=== PATIENT | male | born 1945 | race Caucasian/White ===

== ENCOUNTER 2018-01-07 10:44 | Day surgery (SDC) | payer MEDICARE, OTHER ==
[2018-01-07] VITALS (11 sets, daily range): BP systolic 120–142; BP diastolic 69–80; PULSE 47–77; TEMP 97.8
[~2018-01-07] VITALS: Ht 185.5 cm; Wt 96.8 kg
[2018-01-07 11:34] LABS: PROTHROMBIN TIME 11.5 SECONDS (9.7-12.8)
[2018-01-07 11:37] LABS: HEMATOCRIT 47.1 % (42.0-52.0); HEMOGLOBIN 15.6 g/dl (13.5-18.0); MEAN CELL VOLUME 99 fl (80.0-100.0); MEAN CORPUSCULAR HEMOGLOBIN 33 pg (27.0-31.0); MEAN CORPUSCULAR HGB CONC 33 g/dl (33.0-37.0); MEAN PLATELET VOLUME 10.1 fl (7.4-10.4); PLATELET COUNT 261 K/mm3 (130-400); RED BLOOD COUNT 4.78 M/mm3 (4.20-5.60); REDCELL DISTRIBUTION WIDTH-CV 12.4 % (11.5-14.5)
[2018-01-07 11:39] LABS: CALCIUM 9.2 mg/dL (8.4-10.2); CREATININE, serum 0.89 mg/dL (0.66-1.25); POTASSIUM 4.2 mmol/L (3.4-5.0)
[2018-01-07] MEDS ORDERED: ZESTORETIC 25 M1 TAB PO (11:46)
[2018-01-07] MEDS ORDERED: NEXIUM 40MG40 MG PO (11:47)
[2018-01-07] MEDS ORDERED: CHELATED IRON PO (11:48)
[2018-01-07] MEDS ORDERED: ASPIRIN 81M81 MG/TA2 PO (11:48)
[2018-01-07] MEDS ORDERED: LIPITOR 40MG TA40 MG PO (11:49)
[2018-01-07] MEDS ORDERED: TOPROL XL 25MG25 MG PO (11:50)
[2018-01-07] MEDS ORDERED: ADVIL200 MG PO (11:50)
== END 2018-01-07 18:15 | disposition home or self-care (01) ==
LOC: COL.CAR 10:44
PROVIDERS: Internal Medicine Cardiovascular Disease
DX: I25.10 Atherosclerotic heart disease of native coronary artery without angina pectoris (principal); I10 Essential (primary) hypertension; I49.3 Ventricular premature depolarization; I45.10 Unspecified right bundle-branch block; R73.03 Prediabetes; Z79.82 Long term (current) use of aspirin; Z82.49 Family history of ischemic heart disease and other diseases of the circulatory system; Z82.3 Family history of stroke; Z79.1 Long term (current) use of non-steroidal anti-inflammatories (NSAID)
CPT/HCPCS: J1644; J2250; J3010; Q9967

== ENCOUNTER 2019-12-27 07:45 | Day surgery (SDC) | payer MEDICARE, OTHER ==
[~2019-12-27] VITALS: Ht 185.5 cm; Wt 97.0 kg
[~2019-12-27 07:45] MED LIST: ADVIL200 MG PO; ASPIRIN 81M81 MG/TA2 PO; CHELATED IRON PO; LIPITOR 40MG TA40 MG PO; NEXIUM 40MG40 MG PO; TOPROL XL 25MG25 MG PO; ZESTORETIC 25 M1 TAB PO
[2019-12-27 08:43] VITALS: BP 140/95; PULSE 48; TEMP 97
[2019-12-27 08:53] LABS: INR 1.3 (0.8-3.0)
[2019-12-27] MEDS ORDERED: ELIQUIS 5MG PO (08:56)
[2019-12-27 10:45] VITALS: BP 103/70; PULSE 65
--- NOTE | 2019-12-27 10:45 | NUR ---
report recieved from Radha RN, pt sits up talking with , no c/o, called for EKG for post cardioversion, call light within reach, sips on water
[2019-12-27 11:00] VITALS: BP 101/68; PULSE 66
[2019-12-27 11:15] VITALS: BP 116/77; PULSE 76
--- NOTE | 2019-12-27 11:15 | NUR ---
pt sits on side of bed, no c/o dizziness, reviewed discharge inst. with pt on activity, followup with Dr Feliciano in 2 weeks, left message at office for them to call pt. Reviewed medication with no changes with verbal understanding.
[2019-12-27 11:45] VITALS: BP 125/84; PULSE 76
--- NOTE | 2019-12-27 11:45 | NUR ---
iv d'cd intact, pt dressed, up to b/r, then discharged via w/c to car with
== END 2019-12-27 11:50 | disposition home or self-care (01) ==
LOC: COL.CAR
PROVIDERS: Internal Medicine Cardiovascular Disease
DX: I48.19 Other persistent atrial fibrillation (principal); I49.5 Sick sinus syndrome; I25.10 Atherosclerotic heart disease of native coronary artery without angina pectoris; I11.0 Hypertensive heart disease with heart failure; I50.20 Unspecified systolic (congestive) heart failure; D64.9 Anemia, unspecified; I34.0 Nonrheumatic mitral (valve) insufficiency; K21.9 Gastro-esophageal reflux disease without esophagitis; K44.9 Diaphragmatic hernia without obstruction or gangrene; M54.12 Radiculopathy, cervical region; Z20.828 Contact with and (suspected) exposure to other viral communicable diseases; Z95.0 Presence of cardiac pacemaker; Z79.01 Long term (current) use of anticoagulants; Z79.899 Other long term (current) drug therapy; Z79.82 Long term (current) use of aspirin
CPT/HCPCS: J2704; J7120

== ENCOUNTER 2022-06-19 12:54 | Day surgery (SDC) | payer MEDICARE ==
[~2022-06-19] VITALS: Ht 182.9 cm; Wt 94.8 kg
[~2022-06-19 12:54] MED LIST changes: +ELIQUIS 5MG PO
[2022-06-19 14:08] VITALS: BP 129/78; PULSE 65; TEMP 97.4
[2022-06-19] MEDS ORDERED: IRON BISGLYCINA28 MG PO (14:15)
[2022-06-19] MEDS ORDERED: CENTRUM MEN'S PO (14:15)
[2022-06-19] MEDS ORDERED: MAGNESIUM250 M1 PO (14:16)
[2022-06-19 16:10] VITALS: BP 98/60; PULSE 68; TEMP 96.8
--- NOTE | 2022-06-19 16:10 | NUR ---
PATIENT AMBULATED TO CHAIR WITH STANDBY ASSISTANCE. PATIENT ALERT AND ORIENTED, DENIES PAIN AND NAUSEA. BREATHING REGULAR AND UNLABORED. NURSE HANDOFF COMPLETED IN ROOM. SEE CHART FOR VITAL SIGNS. PATIENT HAD CRANBERRY JUICE AND A MUFFIN, BOTH TOLERATED WELL WITH NO DYSPHAGIA. PATIENT SPOUSE CRISTHI[facility] IN ROOM. MET WITH PATIENT TO DISCUSS PROCEDURE.
[2022-06-19 16:15] VITALS: BP 94/66; PULSE 64
[2022-06-19 16:30] VITALS: BP 110/71; PULSE 60
[2022-06-19 16:45] VITALS: BP 128/72; PULSE 67
--- NOTE | 2022-06-19 16:45 | NUR ---
PATIENT DENIES PAIN AND NAUSEA. DISCHARGE TEACHING COMPLETED WITH PRINTED EDUCATION AND INSTRUCTIONS SENT HOME WITH PATIENT. PATIENT VERBALIZED UNDERSTANDING OF TEACHING. IV REMOVED. PATIENT DISCHARGED HOME WITH [facility] [employer].
== END 2022-06-19 16:52 | disposition home or self-care (01) ==
LOC: SDCO 12:54
DX: Z12.11 Encounter for screening for malignant neoplasm of colon (principal); D12.2 Benign neoplasm of ascending colon; K62.1 Rectal polyp; K31.7 Polyp of stomach and duodenum; K57.30 Diverticulosis of large intestine without perforation or abscess without bleeding; K21.9 Gastro-esophageal reflux disease without esophagitis; K44.9 Diaphragmatic hernia without obstruction or gangrene; Z87.891 Personal history of nicotine dependence; I10 Essential (primary) hypertension
CPT/HCPCS: J2704; J7120